=== PATIENT | female | born 1955 | race Caucasian/White ===

== ENCOUNTER 2020-01-08 15:18 | Emergency (ER) | payer OTHER | END 2020-01-08 15:41 | disposition home or self-care (01) | LOC: JVIRT 15:18 | DX: Z03.818 Encounter for observation for suspected exposure to other biological agents ruled out (principal) | CPT/HCPCS: C9803; G2012-GT; U0003 ==

== ENCOUNTER 2020-03-05 19:17 | Emergency (ER) | payer OTHER ==
[2020-03-05 20:14] VITALS: BMI 44.6
[2020-03-05 20:15] LABS: BASO % 1.3 % (0-2.0); EOS % 0.4 % (0-4.5); HEMATOCRIT 46.7 % (32.4-45.2); HEMOGLOBIN 15.4 GM/dl (10.7-15.3); LYMPH % 31.3 % (8-40); MCH 28.6 pg (25.7-33.7); MEAN CELL VOLUME 86.7 fl (80-96); MEAN PLT VOLUME 9.6 fl (7.5-11.1); MONO % 14.1 % (3.8-10.2); NEUT % 52.9 % (42.8-82.8); PLATELET COUNT 181 K/MM3 (134-434); RBC 5.38 M/mm3 (3.60-5.2); RDW 14.7 % (11.6-15.6); WHITE BLOOD COUNT 6.1 K/mm3 (4.0-10.8)
[2020-03-05] MEDS ORDERED: SODIUM CHLORIDE 1,000 ML IV ONE ×2 (20:21→21:40)
[2020-03-05 20:25] LABS: INR 1.16 (0.82-1.09); PROTHROMBIN TIME (PATIENT) 12.9 SEC (10.2-13.0)
[2020-03-05] MEDS ORDERED: BAMLANIVIMAB 700 MG in SODIUM CHLORIDE 180 ML IVPB ONE (20:28)
[2020-03-05 20:29] LABS: EPITHELIAL CELLS FEW /hpf
[2020-03-05 20:32] LABS: ALBUMIN 4.2 g/dl (3.4-5.0); BILIRUBIN,TOTAL 1.5 mg/dl (0.2-1); CREATININE 0.9 mg/dl (0.55-1.3); MAGNESIUM 1.7 mg/dL (1.8-2.4); POTASSIUM 3.5 mmol/L (3.5-5.1)
[2020-03-05] MEDS ORDERED: NITROFURANTOIN MACROCRYSTAL 50 MG CAPSULE (FP) PO SCH (21:15)
[2020-03-05] MEDS ORDERED: NITROFURANTOIN MACROCRYSTAL 50 MG CAPSULE (FP) ONE (21:17)
[2020-03-05 21:56] VITALS: TEMP 98.1
[2020-03-06 00:31] VITALS: BP 131/67; PULSE 87
== END 2020-03-06 01:15 | disposition home or self-care (01) ==
LOC: FER 19:17
PROC: 3E03329 Introduction of Other Anti-infective into Peripheral Vein, Percutaneous Approach (ICD-10-PCS; principal; 2020-03-05)
PROC: 3E0337Z Introduction of Electrolytic and Water Balance Substance into Peripheral Vein, Percutaneous Approach (ICD-10-PCS; 2020-03-05)
PROC: 3E0337Z Introduction of Electrolytic and Water Balance Substance into Peripheral Vein, Percutaneous Approach (ICD-10-PCS; 2020-03-05)
DX: N30.90 Cystitis, unspecified without hematuria (principal); U07.1 COVID-19
CPT/HCPCS: 36415; 71045-TC-FY; 80053; 81003; 81015; 82550; 83605; 83735; 84484; 85025; 85610; 93005; 99285-25; M0239; Q0239

== ENCOUNTER 2020-03-06 12:10 | Emergency (ER) | payer OTHER ==
[2020-03-06] MEDS ORDERED: SODIUM CHLORIDE 0.9% 500 ML INFUS.BAG IV ONE ×2 (12:56→14:04)
[2020-03-06] MEDS ORDERED: ACETAMINOPHEN 1000 MG/100 ML VIAL (NON FORMULARY) IVPB ONE (12:56)
[2020-03-06] MEDS ORDERED: ACETAMINOPHEN INJECTION 100 ML IVPB ONE (12:57)
[2020-03-06 13:07] LABS: BASO % 0.7 % (0-2.0); EOS % 0.2 % (0-4.5); HEMATOCRIT 41.6 % (32.4-45.2); HEMOGLOBIN 13.5 GM/dl (10.7-15.3); LYMPH % 21.7 % (8-40); MCH 28.4 pg (25.7-33.7); MCHC 32.4 g/dl (32.0-36.0); MEAN CELL VOLUME 87.5 fl (80-96); MEAN PLT VOLUME 10.2 fl (7.5-11.1); NEUT % 63.4 % (42.8-82.8); PLATELET COUNT 162 K/MM3 (134-434); RBC 4.75 M/mm3 (3.60-5.2); RDW 14.5 % (11.6-15.6); WHITE BLOOD COUNT 6.4 K/mm3 (4.0-10.8)
[2020-03-06 13:19] LABS: ALBUMIN 3.6 g/dl (3.4-5.0); BILIRUBIN,DIRECT 0.3 mg/dL (0.0-0.2); BILIRUBIN,TOTAL 1.6 mg/dl (0.2-1); CALCIUM 8.3 mg/dl (8.5-10); CREATININE 0.7 mg/dl (0.55-1.3); POTASSIUM 3.7 mmol/L (3.5-5.1); TOT PROT 6.6 g/dl (6.4-8.2)
[2020-03-06 13:30] LABS: INR 1.3 (0.82-1.09); PROTHROMBIN TIME (PATIENT) 14.3 SEC (10.2-13.0)
[2020-03-06 13:35] VITALS: TEMP 99.8; BMI 43.9
[2020-03-06 14:59] LABS: VENOUS O2 SATURATION 81.4 % (70-80); VENOUS PCO2 34.8 mmHg (38-52); VENOUS PH 7.401 (7.310-7.410)
[2020-03-07 10:43] VITALS: BP 112/66; PULSE 83
== END 2020-03-06 15:31 | disposition home or self-care (01) ==
LOC: FER 12:10
PROC: 3E033NZ Introduction of Analgesics, Hypnotics, Sedatives into Peripheral Vein, Percutaneous Approach (ICD-10-PCS; principal; 2020-03-06)
PROC: 3E0337Z Introduction of Electrolytic and Water Balance Substance into Peripheral Vein, Percutaneous Approach (ICD-10-PCS; 2020-03-06)
DX: U07.1 COVID-19 (principal)
CPT/HCPCS: 36415; 71045-TC-FY; 80053; 82248; 82550; 82728; 82803; 83605; 83615; 84484; 85025; 85379; 85610; 85730; 86140; 87040; 87804; 99285-25; C9803; J0131; U0003

== ENCOUNTER → 2021-07-10 | Day surgery (SDC) | payer OTHER | END | disposition home or self-care (01) | LOC: JRADIR 09:18 | PROVIDERS: ATTEND Internal Medicine | PROC: 0GBG3ZX Excision of Left Thyroid Gland Lobe, Percutaneous Approach, Diagnostic (ICD-10-PCS; principal; 2021-07-10) | PROC: BG44ZZZ Ultrasonography of Thyroid Gland (ICD-10-PCS; 2021-07-10) | DX: E04.1 Nontoxic single thyroid nodule (principal) | CPT/HCPCS: 10005; 76942; 88173; 88305-TC ==